=== PATIENT | male | born 1955 | race Two or more races ===

== ENCOUNTER 2024-12-07 14:41 | Emergency (ER) | payer BC, MEDICARE, OTHER ==
[~2024-12-07] VITALS: Ht 167.6 cm; Wt 61.8 kg
[2024-12-07 15:04] VITALS: BP 99/63; PULSE 62; RESP 20; TEMP 99.6; O2SAT 98
--- NOTE | 2024-12-07 15:19 | ED.PDOC ---
History of Present Illness HPI Comments This patient is a pleasant 69-year-old male who arrives the ED today for generalized wellness check. Patient states his family was concerned about him as he has had a 40 lb weight loss over the past six months. Patient states he has changed his diet and increased his exercise activity. Patient had no compla ints of illness and stated he felt very healthy. Patient was mildly hypotensive on arrival. Chief Complaint: Medical Clearance Time Seen by MD: 15:09 Reviewed Notes: Nurses Notes Allergies: Coded Allergies: NO KNOWN ALLERGIES (Unverified , 12/07/24) Information Source: Patient, Friend Mode of Arrival: Ambulatory Severity: Mild Timing: Months Duration: Since onset Prehospital treatment: None Past Medical History PAST MEDICAL HISTORY: Denies Surgical History: Denies all surgeries Family History Family History: Reviewed,noncontributory to illness, No family hx of Cancer, No family hx of DM, No family hx of Heart cooper, No family hx of HTN, No family hx ofKidney cooper, No family hx of Liver cooper, No family hx of Lung cooper, No family hx of Stroke Social History Smoker: Non-Smoker Alcohol: Denies ETOH Use Drugs: Denies Drug Use Lives In: Home Constitutional: denies: chills, diaphoresis, fatigue, fever, malaise, sweats, weakness, others EENTM: denies: blurred vision, double vision, ear bleeding, ear discharge, ear drainage, ear pain, ear ringing, eye pain, eye redness, hearing loss, mouth pain, mouth swelling, nasal discharge, nose bleeding, nose congestion, nose pain, photophobia, tearing, throat pain, throat swelling, voice changes, others Respiratory: denies: cough, hemoptysis, orthopnea, SOB at rest, shortness of breath, SOB with excertion, stridor, wheezing, others Cardiovascular: denies: chest pain, dizzy spells, diaphoresis, Dyspnea on exertion, edema, irregular heart beat, left arm pain, lightheadedness, palpitations, PND, syncope, others Gastrointestinal: denies: abdomen distended, abdominal pain, blood streaked bowels, constipated, diarrhea, dysphagia, difficulty swallowing, hematemesis, melena, nausea, poor appetite, poor fluid intake, rectal bleeding, rectal pain, vomiting, others Genitourinary: denies: burning, dysuria, flank pain, frequency, hematuria, incontinence, penile discharge, penile sore, pain, testicle pain, testicle swelling, urgency, others Neurological: denies: dizziness, fainting, headache, left sided numbness, left sided weakness, numbness, paresthesia, pre-existing deficit, right sided numbness, right sided weakness, seizure, speech problems, tingling, tremors, weakness, others Musculoskeletal: denies: back pain, gout, joint pain, joint swelling, muscle pain, muscle stiffness, neck pain, others Integumetry: denies: bruises, change in color, change in hair/nails, dryness, laceration, lesions, lumps, rash, wounds, others Allergic/Immunocompromised: denies: Difficulty Healing, Frequent Infections, Hives, Itching, others Hematologic/Lymphatic: denies: anemia, blood clots, easy bleeding, easy bruising, swollen glands, others Endocrine: denies: excessive hunger, excessive sweating, excessive thirst, excessive urination, flushing, intolerance to cold, intolerance to heat, unexplained weight gain, unexplained weight loss, others Psychiatric: denies: anxiety, bipolar disorder, depression, hopeless, panic disorder, schizophrenia, sleepless, suicidal, others Physical Exam Exam Comments Patient looks very fit and healthy. General Appearance: No Apparent Distress (Patient is in no distress at time of evaluation.), Normal HEENT: Normal ENT Inspection, Pharynx Normal, TMs Normal Neck: Full Range of Motion, Non-Tender, Normal, Normal Inspection Respiratory: Chest Non-Tender, Lungs Clear, No Accessory Muscle Use, No Respiratory Distress, Normal Breath Sounds Cardiovascular: No Edema, No JVD, No Murmur, No Gallop, Normal Peripheral Pulses, Regular Rate/Rhythm Breast Exam: Deferred Gastrointestinal: No Organomegaly, Non Tender, No Pulsatile Mass, Normal Bowel Sounds, Soft Genitalia: Deferred Pelvic: Deferred Rectal: Deferred Extremities: No calf tenderness, Normal capillary refill, Normal inspection, Normal range of motion, Non-tender, No pedal edema Neurologic: Alert, No Motor Deficits, Normal Affect, Normal Mood, No Sensory Deficits Cerebellar Function: Normal Reflexes: Normal Skin: Dry, Normal Color, Warm Lymphatic: No Adenopathy Was a procedure done? Was a procedure done?: No Differential Dx Considerations may include: Healthy adult male X-Ray, Labs, Meds, VS Vital Signs Date Time Temp Pulse Resp B/P (MAP) Pulse Ox O2 Delivery O2 Flow Rate FiO2 12/07/24 15:04 99.6 62 20 99/63 (75) 98 99.6 12/07/24 15:04 62 20 98 Room Air X-Ray, Labs, Meds, VS Comment Advised patient that there was no need for intervention today. Patient has made some good nutritional and lifestyle modifications in his had good benefits from those. If patient develops concerns, follow up with the primary care provider for discussions. Time of 1ST Reevaluation: 15:56 Reevaluation 1ST: Unchanged Consultation: PCP Patient Education/Counseling: Diagnosis, Treatment Family Education/Counseling: Diagnosis, Treatment Departure 1 Departure Time of Disposition: 15:56 Impression: Primary Impression: Healthy adult male Disposition: 01 HOME / SELF CARE / HOMELESS Condition: Stable Additional Instructions: Advised patient follow up with the primary care provider for any additional concerns related to general health issues. Discharged With: Self, Friend Critical Care Note Critical Care Time?: No Stability Stability form required: No Heart Score Heart Score: Heart Score Response (Comments) Value History N/A 0 EKG N/A 0 Age N/A 0 Risk Factors N/A 0 Troponin N/A 0 Total 0 OSKAR ANDRE PAC Dec 07, 2024 15:19
== END 2024-12-07 16:51 | disposition home or self-care (01) ==
LOC: ER 14:41
DX: R53.1 Weakness (principal); Z00.00 Encounter for general adult medical examination without abnormal findings

== ENCOUNTER 2025-05-13 11:02 | Outpatient (CLI) | payer MEDICAID ==
[2025-05-13 11:53] LABS: Urine Protein, UAD 1+ (Negative)
[2025-05-13 11:55] LABS: Hematocrit 44.3 % (41.0-53.0); Hemoglobin 15.0 g/dL (13.5-17.5); Mean Corpuscular Hemoglobin 34.5 pg (28.0-32.0); Mean Corpuscular Volume 101.6 fL (80.0-100.0); Nucleated Red Blood Cells % 0.3 %
[2025-05-13 12:40] LABS: Alanine Aminotransferase 13 U/L (7-40); Albumin 4.5 g/dL (3.2-4.8); Alkaline Phosphatase 99 U/L (46-116); Anion Gap 1 (5-15); BUN/Creatinine Ratio 14.2 (10.0-20.0); Bilirubin, Total 0.6 mg/dL (0.2-1.0); Blood Urea Nitrogen 16 mg/dL (9-23); Calcium 9.2 mg/dL (8.7-10.4); Carbon Dioxide 29 mmol/L (20-31); Cholesterol 128 mg/dL (< 200); Glucose 79 mg/dL (74-106); Potassium 4.3 mmol/L (3.5-5.1); Sodium 142 mmol/L (136-145); Total Protein 6.9 g/dL (5.7-8.2); Triglycerides 57 mg/dL (< 150)
[2025-05-13 12:44] LABS: Chloride 112 mmol/L (98-107); HDL Cholesterol 36 mg/dL (40-59)
[2025-05-13 16:00] LABS: Hepatitis A Total Antibody Negative (Negative); Hepatitis B Surface Antigen Negative (Negative)
[2025-05-13 16:05] LABS: Hepatitis C Antibody Positive (Negative)
== END 2025-05-13 17:00 | disposition home or self-care (01) ==
LOC: LAB 11:02
PROVIDERS: ATTEND Nurse Practitioner Family
DX: Z12.5 Encounter for screening for malignant neoplasm of prostate (principal); E78.5 Hyperlipidemia, unspecified; E55.9 Vitamin D deficiency, unspecified; R50.9 Fever, unspecified
CPT/HCPCS: 36415; 80053; 80061; 81001; 82306; 83036; 84153; 84443; 85025; 86703; 86704; 86706; 86708; 86780; 86803; 87340

== ENCOUNTER 2025-06-12 14:23 | Outpatient (CLI) | payer MEDICAID ==
[2025-06-12 14:58] LABS: Hematocrit 43.9 % (41.0-53.0); Hemoglobin 15.2 g/dL (13.5-17.5); Mean Corpuscular Hemoglobin 35.3 pg (28.0-32.0); Mean Corpuscular Volume 102.1 fL (80.0-100.0); Nucleated Red Blood Cells % 0.1 %
[2025-06-13 10:07] LABS: Anti-Nuclear Antibody Direct Negative (Negative)
== END 2025-06-12 17:00 | disposition home or self-care (01) ==
LOC: LAB 14:23
PROVIDERS: ATTEND Nurse Practitioner Family
DX: D72.819 Decreased white blood cell count, unspecified (principal)
CPT/HCPCS: 36415; 82607; 82746; 85025; 85652; 86038; 86431; 86703; 87517; 87902

== ENCOUNTER 2025-08-01 08:21 | Day surgery (SDC) | payer MEDICAID ==
[2025-07-31 12:54] LABS: Nucleated Red Blood Cells % 0.1 %
[2025-07-31 12:56] LABS: Hematocrit 43.8 % (41.0-53.0); Hemoglobin 15.3 g/dL (13.5-17.5); Mean Corpuscular Hemoglobin 35.7 pg (28.0-32.0); Mean Corpuscular Volume 102.1 fL (80.0-100.0)
[2025-07-31 12:57] LABS: Urine Amorphous Crystal MOD /hpf (None Seen); Urine Protein, UAD Negative (Negative); Urine WBC Clumps PRESENT /hpf (None Seen)
[2025-07-31 13:09] LABS: INR 1.07 (0.9-1.15); Partial Thromboplastin Time 25.7 SEC (24.5-34.5); Prothrombin Time 11.3 sec (9.3-11.8)
[2025-07-31 13:10] LABS: Alanine Aminotransferase 17 U/L (7-40); Albumin 4.4 g/dL (3.2-4.8); Alkaline Phosphatase 156 U/L (46-116); Anion Gap 4 (5-15); BUN/Creatinine Ratio 12.3 (10.0-20.0); Blood Urea Nitrogen 14 mg/dL (9-23); Calcium 9.8 mg/dL (8.7-10.4); Carbon Dioxide 32 mmol/L (20-31); Chloride 108 mmol/L (98-107); Glucose 75 mg/dL (74-106); Potassium 4.2 mmol/L (3.5-5.1); Sodium 144 mmol/L (136-145); Total Protein 7.6 g/dL (5.7-8.2)
[2025-07-31 13:11] LABS: Bilirubin, Total 0.7 mg/dL (0.2-1.0)
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
[~2025-08-01] VITALS: Ht 167.6 cm; Wt 61.2 kg
[~2025-08-01 08:21] MED LIST: IBUP-1456 PO; OXY5T PO; ceFAZolin 2 GM/D5W50ml 50 ML IV ONE
[2025-08-01] MEDS ORDERED: fentaNYL CITRATE 100 MCG/2 ML VL ONE (09:26)
[2025-08-01] MEDS ORDERED: MIDAZOLAM HCL 2MG/2ML 2ml VIAL (1mg/ml) ONE (09:26)
[2025-08-01] MEDS ORDERED: ONDANSETRON HCL 4 MG/2 ML VIAL ONE (09:27)
[2025-08-01] MEDS ORDERED: METOCLOPRAMIDE HCL 5MG/ml INJ 2ml VIAL ONE (09:27)
[2025-08-01] MEDS ORDERED: ROCURONIUM 10MG/ML 10ML VIAL IV ONE (09:27)
[2025-08-01] MEDS ORDERED: PROPOFOL 10 MG/ML 20 ML IV ONE (09:27)
[2025-08-01] MEDS ORDERED: METOCLOPRAMIDE HCL 5MG/ml INJ 2ml VIAL IV PRN (09:30)
[2025-08-01] MEDS ORDERED: HYDROmorphone HCL 2 MG/ML VL/or syr IV PRN (09:30)
[2025-08-01] MEDS ORDERED: ONDANSETRON HCL 4 MG/2 ML VIAL IV PRN (09:30)
[2025-08-01] MEDS ORDERED: ceFAZolin 1GM VL ONE (09:34)
[2025-08-01] MEDS ORDERED: SODIUM CHLORIDE LOCK 10 ML ONE (09:54)
[2025-08-01] MEDS: BUPIVACAINE HCL 0.25% P/F 10 ML VIAL ONE (10:06)
[2025-08-01] MEDS: LIDOCAINE W/ EPINEPHRINE 1% 20ML VIAL ONE (10:20)
[2025-08-01] MEDS ORDERED: SUGAMMADEX 200mg/2ml Vial (100MG/ML) IV ONE (10:24)
--- NOTE | 2025-08-01 11:25 | DVHOP2 ---
Operative Report - 2 Report Details Date: 08/01/25 Preop Diagnosis: Right inguinal hernia Postop Diagnosis: Right indirect inguinal hernia Surgeon: Mike Cui MD Joint Cutter: Westley Dunbar NP Anesthesiologist: Taras capone CRNA Anesthesia: General Implant: Medium Bard plug and patch mesh Consent: The patient was informed of the risks and benefits of the procedure. These include but are not limited to complications of anesthesia, postoperative infection, incomplete relief of symptoms, recurrence of symptoms, damage to blood vessels, nerves and tendons, deep venous thrombosis, pulmonary embolism and possible need for repeat surgery in the future. Complications: None Estimated Blood Loss: 5 mL Findings: Small approximately 1-2 cm in diameter indirect inguinal hernia without contents and sac. Indications for Surgery: Right-sided inguinal hernia causing pain and discomfort Name of Procedure Performed Open right-sided inguinal hernia repair with mesh Procedure Details Procedure Details: Upon arriving to the operating room the patient was transferred to the operating table and placed in the supine position with arms extended. General endo tracheal anesthesia was induced. Time-out was observed. Patient was prepped and draped in the standard sterile surgical fashion with chlorhexidine. I then proceeded to make a transverse skin incision approximately 1-2 cm above the right pubic tubercle extending laterally. This incision was carried down to external oblique aponeurosis. I then infiltrated the aponeurosis with local anesthetic. I then incised the external oblique aponeurosis and extended the incision towards the external inguinal ring with Metzenbaum scissors. Utilizing blunt dissection I freed the inside of the external oblique aponeurosis (both flaps) from surrounding tissue, making my way to the right pubic tubercle. Once at the pubic tubercle high bluntly dissected around the spermatic cord, and then placed a Dianelys drain around the spermatic cord. Carefully I then dissected off the spermatic cord, the cremasteric fibers. I then was able to identify the spermatic cord structures to include the right-sided vas deferens. I then briana ntified a medium-sized hernia sac in the anteromedial aspect of the spermatic cord. The hernia sac was completely freed from surrounding tissue and from the spermatic cord components, all the way down to its base. Once at the base I proceeded to incise the dome of the hernia sac, no contents within the hernia sac. I then proceeded to palpate through the hernia sac and felt a 1-2 cm indirect inguinal hernia defect. The hernia sac was then ligated at its base with 2, 2 0 silk ties and transected above. Sac was then returned into the peritoneal cavity. All spermatic cord structures were preserved to include the vas deferens and nerves. I then proceeded to place a medium-sized Bard plug and patch mesh, but only the patch portion of it. I secured the mesh with 0 Ethibond sutures to the lacunar ligament at the pubic tubercle medially, shelving edge of the inguinal ligament inferiorly, conjoint tendon and external oblique muscle superiorly. The internal inguinal ring was recreated with the mesh tails and they were secured snugly around the spermatic cord with a 0 Ethibond suture in [id number] fashion. Mesh lay flat and without tension. Wound was then irrigated, no bleeding. I then closed the external oblique aponeurosis with a running 2-0 Vicryl. I then continue closing the wound in layers utilizing 3-0 Vicryl for Gregorio's fascia and for the dermis. Skin was closed with a running 4-0 Monocryl in subcuticular fashion. Prineo was applied over incision. Mixture of 1% lidocaine and 0.25% Marcaine was used as local anesthetic. All counts complete and correct at the end of the procedure. Patient tolerated the procedure well and was transferred to PACU in stable condition. Specimen: Hernia sac Condition Stable Disposition Home MIKE MORNOY MD Aug 01, 2025 11:25
[2025-08-01 11:32] VITALS: PULSE 69; RESP 20; TEMP 97.6; O2SAT 96
[2025-08-01] MEDS: KETOROLAC TROMETH 30 MG/ML 1ML VIAL IV ONE (12:26)
[2025-08-01 12:47] VITALS: BP 136/59; PULSE 42; RESP 16; O2SAT 95
== END 2025-08-01 13:11 | disposition home or self-care (01) ==
LOC: SUR 08:21
PROVIDERS: ATTEND Student in an Organized Health Care Education/Training Program
DX: K40.90 Unilateral inguinal hernia, without obstruction or gangrene, not specified as recurrent (principal); Z79.899 Other long term (current) drug therapy; Z96.642 Presence of left artificial hip joint; Z98.890 Other specified postprocedural states; Z87.891 Personal history of nicotine dependence
CPT/HCPCS: 36415; 49505; 80053; 81001; 85025; 85610; 85730; 86850; 86900; 86901; C1781; J0690; J1885; J2250; J2405; J2704; J2765; J3010; J3490; 88302

== ENCOUNTER 2025-09-17 12:37 | Outpatient (CLI) | payer MEDICAID ==
[~2025-09-17 12:37] MED LIST changes: -ceFAZolin 2 GM/D5W50ml 50 ML IV ONE
[2025-09-17 13:14] LABS: Hematocrit 43.9 % (41.0-53.0); Hemoglobin 14.9 g/dL (13.5-17.5); Mean Corpuscular Hemoglobin 35.1 pg (28.0-32.0); Mean Corpuscular Volume 103.6 fL (80.0-100.0); Nucleated Red Blood Cells % 0.1 %; Urine Protein, UAD Negative (Negative)
[2025-09-17 13:49] LABS: Alanine Aminotransferase 22 U/L (7-40); Albumin 4.5 g/dL (3.2-4.8); Anion Gap 2 (5-15); BUN/Creatinine Ratio 13.1 (10.0-20.0); Blood Urea Nitrogen 13 mg/dL (9-23); Calcium 9.7 mg/dL (8.7-10.4); Cholesterol 116 mg/dL (< 200); Glucose 90 mg/dL (74-106); HDL Cholesterol 44 mg/dL (40-59); Potassium 4.3 mmol/L (3.5-5.1); Sodium 141 mmol/L (136-145); Total Protein 7.4 g/dL (5.7-8.2); Triglycerides 49 mg/dL (< 150)
[2025-09-17 13:50] LABS: Bilirubin, Total 0.8 mg/dL (0.2-1.0)
[2025-09-17 13:52] LABS: Alkaline Phosphatase 132 U/L (46-116); Carbon Dioxide 31 mmol/L (20-31); Chloride 108 mmol/L (98-107)
== END 2025-09-17 17:00 | disposition home or self-care (01) ==
LOC: LAB 12:37
PROVIDERS: ATTEND Nurse Practitioner Family
DX: E78.5 Hyperlipidemia, unspecified (principal); E55.9 Vitamin D deficiency, unspecified; N39.0 Urinary tract infection, site not specified
CPT/HCPCS: 36415; 80053; 80061; 81001; 82306; 83036; 84153; 84443; 85025